=== PATIENT | female | born 1955 | race Caucasian/White ===

== ENCOUNTER → 2016-09-13 | Outpatient (REF) | payer OTHER ==
[2016-09-13 14:41] LABS: VANCOMYCIN,TROUGH 5.7 ug/mL (10.0-15.0)
== END ==
LOC: LAB 13:58
PROVIDERS: ATTEND Internal Medicine Infectious Disease
DX: T81.4XXA Infection following a procedure, initial encounter (principal)
CPT/HCPCS: 80202; 82565

== ENCOUNTER → 2016-09-16 | Outpatient (REF) | payer OTHER ==
[2016-09-16 13:35] LABS: BASOPHILS % (AUTO) 1 % (0-2); EOSINOPHILS # (AUTO) 0.1 10^3uL; EOSINOPHILS % (AUTO) 4 % (0-4); LYMPHOCYTES # (AUTO) 0.8 X10^3; MEAN CORPUSCULAR HEMOGLOBIN 25.2 PG (26.0-34.0); MEAN CORPUSCULAR HGB CONC 31.8 g/dL (31.0-37.0); MEAN CORPUSCULAR VOLUME 79 FL (80-100); MONOCYTES # (AUTO) 0.5 X10^3; MONOCYTES % (AUTO) 15 % (3-11); NEUTROPHILS # (AUTO) 1.7 X10^3; NEUTROPHILS % (AUTO) 56 % (51-67); PLATELET COUNT 208 10^3uL (150-450); WHITE BLOOD COUNT 3.08 10^3uL (4.0-11.0)
[2016-09-16 13:42] LABS: ALBUMIN 2.9 g/dL (3.4-5.0); CALCULATED IONIZED CALCIUM 4.3 mg/dL (3.8-4.6); TOTAL PROTEIN 5.9 g/dL (6.4-8.5)
[2016-09-16 13:45] LABS: VANCOMYCIN,TROUGH 8.6 ug/mL (10.0-15.0)
[2016-09-16 14:11] LABS: ERYTHROCYTE SEDIMENTATION RT* 14 mm/hr (0-23)
== END ==
LOC: LAB 12:54
PROVIDERS: ATTEND Internal Medicine Infectious Disease
DX: T81.4XXA Infection following a procedure, initial encounter (principal)
CPT/HCPCS: 80053; 80202; 82565; 85025; 85652; 86140

== ENCOUNTER → 2016-09-24 | Outpatient (REF) | payer OTHER ==
[2016-09-25 08:20] LABS: MEAN CORPUSCULAR VOLUME 82 FL (80-100); PLATELET COUNT 181 10^3uL (150-450); WHITE BLOOD COUNT 2.79 10^3uL (4.0-11.0)
[2016-09-25 08:35] LABS: ALBUMIN 3.1 g/dL (3.4-5.0); ANION GAP 11.5 MEQ/L (3-15); CALCULATED IONIZED CALCIUM 4.3 mg/dL (3.8-4.6); TOTAL PROTEIN 6.2 g/dL (6.4-8.5)
[2016-09-25 08:45] LABS: MEAN CORPUSCULAR HEMOGLOBIN 24.4 PG (26.0-34.0); MEAN CORPUSCULAR HGB CONC 29.9 g/dL (31.0-37.0)
[2016-09-25 09:35] LABS: BAND NEUTROPHILS % 6 % (0-6); EOSINOPHILS % 3 % (0-4); LYMPHOCYTES # 0.8 #; MONOCYTES # 0.2 #; MONOCYTES % 9 % (3-11); RBC MORPH NORMAL (NORMAL); SEGMENTED NEUTROPHILS % 49 % (51-67); TOTAL CELLS COUNTED 100
== END ==
LOC: LAB 13:57
PROVIDERS: ATTEND Family Medicine
DX: M17.11 Unilateral primary osteoarthritis, right knee (principal); Z96.651 Presence of right artificial knee joint
CPT/HCPCS: 80053; 82550; 85007; 85027; 86140